=== PATIENT | female | born 1960 | race Caucasian/White ===

== ENCOUNTER → 2017-04-06 | Outpatient (CLI) | payer OTHER ==
[~2017-04-06] MED LIST: B-CO1CAP3 PO; DULO60CA44 PO; TRAM-10 PO
--- NOTE | 2017-04-06 12:22 | DIAGNOSTIC IMAGING REPORT ---
LEFT KNEE MRI Clinical history: 56-year-old female with left knee pain. TECHNIQUE: Multiplanar multisequence MRI of the left knee was performed without the use of intravenous contrast. COMPARISON: Correlation made to plain radiographs of the left knee from 11/24/2016. FINDINGS: Menisci: Slight extrusion of the body of the medial meniscus although the meniscocapsular ligaments appear intact. High intrasubstance signal within the posterior horn of the medial meniscus likely degenerative in etiology. Lateral meniscus intact. Ligaments: Anterior and posterior cruciate ligaments intact. Mildly increased signal in the tibial aspect of the medial collateral ligament may suggest mild tendinosis. Lateral collateral ligament complex including the fibular ligament, iliotibial band, and biceps femoris tendon intact. Slight high signal at the femoral condylar insertion of the popliteus tendon, which may suggest tendinosis. Extensor mechanism: Quadriceps tendon and patellar ligament intact. Articular cartilage and bone: Osteophytosis of the medial and lateral compartments. Mild thinning of the articular cartilage along the mid articular surface of the lateral femoral condyle. High-grade thinning of articular cartilage along the mid articular surface of both the medial femoral condyle and medial tibial plateau. Subchondral sclerosis in both the medial femoral condyle and medial tibial plateau with joint space narrowing. Focal chondral defect along the patella at the medial facet with minimal subchondral cystic change. Degenerative cystic change in the posterior tibia near the insertion of the posterior cruciate ligament. Joint effusion: Moderate knee joint effusion with synovitis. Prominent popliteal cyst. Soft tissues: Mild diffuse soft tissue edema surrounding the knee joint. Normal muscle bulk. No convincing evidence of intramuscular edema.. IMPRESSION: 1. Tricompartmental degenerative change most severe in the medial compartment, where there is high-grade articular cartilage thinning along the mid articular surface, subchondral sclerosis, and joint space narrowing. Focal chondral defect of the medial patellar facet. 2. Moderate joint effusion with synovitis. Electronically signed by: Hussein Bennett M.D. 04/06/2017 12:20 PM Dictated Date/Time: 04/06/2017 12:03 PM
== END | disposition home or self-care (01) ==
LOC: C.MRIBC 11:05
PROVIDERS: ATTEND Orthopaedic Surgery
DX: M25.562 Pain in left knee (principal); M25.462 Effusion, left knee; M65.9 Synovitis and tenosynovitis, unspecified

== ENCOUNTER → 2017-04-21 | Day surgery (SDC) | payer OTHER ==
[2017-04-20 14:36] VITALS: Ht 152.4 cm; Wt 63.6 kg
[~2017-04-21] VITALS: Ht 152.4 cm; Wt 63.6 kg
[~2017-04-21] MED LIST changes: +ATROPINE SULFATE 0.1 MG/ML 5ML SYR IV PRN; +CEFAZOLIN 2000 MG/60 ML D5W IV SCH; +DEXAMETHASONE SOD INJ 4 MG/ML VIAL ONE; +EpHEDrine SULFATE INJ 50 MG/ML AMP IV PRN; +EpINEphrine INJ 1MG/ML AMP 1 MG/ML AMP ONE; +FENTANYL CITRATE INJ 50 MCG/1 ML 2 ML VIAL IV PRN; +FENTANYL CITRATE INJ 50 MCG/1 ML 2 ML VIAL ONE; +HYDROmorphone INJ 1 MG/ML SYR IV PRN; +KETOROLAC TROMETHAMINE 30 MG/ML VIAL ONE; +LACTATED RINGER'S 1000ML 1,000 ML IV SCH; +LIDOCAINE HCL 2% 2 ML VIAL (20MG/ML) ONE; +MIDAZOLAM HCL 1 MG/ML 2ML VIAL ONE; +ONDANSETRON INJ 2 MG/ML 2 ML VIAL IV PRN; +ONDANSETRON INJ 2 MG/ML 2 ML VIAL ONE; +PROMETHAZINE HCL INJ 12.5 MG in SODIUM CHLORIDE 0.9% 50ML 50 ML IV PRN; +PROPOFOL IV EMULSION 10 MG/ML 20 ML VIAL IV ONE; +ROPIVACAINE 0.5% 5 MG/ML 30 ML VIAL ONE; +SODIUM CHLORIDE 0.9% 1000ML 1,000 ML IV SCH; +TRAMADOL HCL 50 MG TAB PO PRN
--- NOTE | 2017-04-21 11:40 | History & Physical Bridge - SC ---
H&P Re-Evaluation Bridge Note: I have examined the patient, reviewed the History & Physical and in the interval since the performance of the History & Physical I have noted the following changes of clinical significance: No changes noted
--- NOTE | 2017-04-21 14:19 | Discharge Instructions-SurgCtr ---
Discharge Instructions Date of Service Apr 21, 2017. Visit Reason for Visit: Left Knee Acute Medial Meniscal Tear Discharge Discharge Diagnosis / Problem: SAME ABOVE Discharge Goals Goal(s): Decrease discomfort, Improve function Medications Stopped Medications Name(s): MOTRIN STOPPED ON 04/06/17 Restart Stopped Medication(s): MAY RESTART 04/21/2017 Activity Recommendations Activity Limitations: as noted below Lifting Limitations: gradually increase as tolerated Exercise/Sports Limitations: gradually increase as tolerated Shower/Bathe: tomorrow Weightbearing Status: Left weightbearing (as tolerated) Anesthesia . Post Anesthesia Instructions: If you have had General Anesthesia or IV Sedation: * Do not drive today. * Resume driving when surgeon permits. * Do not make important decisions or sign legal documents today. * Call surgeon for: 1. Temperature elevations greater than 101 degrees F. 2. Uncontrollable pain. 3. Excessive bleeding. 4. Persistent nausea and vomiting. 5. Medication intolerance (nausea, vomiting or rash). * For nausea and vomiting use only clear liquids such as: tea, soda, bouillon until nausea subsides, then gradually increase diet as tolerated. * If you have any concerns or questions, call your surgeon's office. If physician is unavailable and it is an emergency, call 911 or go to the nearest emergency room. . Instructions / Follow-Up Instructions / Follow-Up MEDICATIONS: * Resume previous medications unless instructed otherwise by your surgeon. * Always take pain medication on a full stomach or with food to avoid upset stomach. * Do not drink alcohol or drive while taking narcotics. * Ibuprofen or Tylenol may be taken if narcotic not needed. SPECIAL CARE INSTRUCTIONS: __ None _X_ Keep extremity elevated and iced x 48 hours; apply ice 20-30 minutes 8-10 times/day. May remove at night. _X_ Crutches _X_ May discard when able __ Brace/Post-op shoe __ 24 hrs/day __ Remove at night _X_ Dressing __ Maintain until seen in office, may shower with plastic over site _X_ Remove dressings in 24-48 hours and then may shower _X_ Cover incisions with band-aids after showering __ Do not remove steri-strips Call physician if chills or temperature rises above 102 degrees or pain unrelieved by prescribed pain medications. Office [phone] Diet Recommendations Home Diet: no limitations Fluid Restriction: None Procedures Procedures Performed: Left Knee Arthroscopy, Partial Medial Meniscectomy, Chondroplasty, Aspiration of Larsen's cyst Pending Studies Studies pending at discharge: no Work Instructions Return To Work: after follow-up Medical Emergencies . Who to Call and When: Medical Emergencies: If at any time you feel your situation is an emergency, please call 911 immediately. . Non-Emergent Contact Non-Emergency issues call your: Primary Care Provider Call Non-Emergent contact if: you have a fever, temperature is above 101.5 . . "Provider Documentation" section prepared by Anatoliy Willard. .
--- NOTE | 2017-04-21 15:05 | [facility] Post Operative Brief Note ---
Immediate Operative Summary Operative Date Apr 21, 2017. Pre-Operative Diagnosis Left knee acute meniscus tear Post-Operative Diagnosis Same as pre-op Procedure(s) Performed Left Knee Arthroscopy, Partial Medial Meniscectomy, Chondroplasty, Aspiration of Larsen's cyst Surgeon Dr. Resendez Trousseau Consultant Surgeon(s) Dawson Willard PA-C Estimated Blood Loss 5ML Findings as above Specimens None Complication(s) None Disposition Recovery Room / PACU
[2017-04-21 15:15] VITALS: TEMP 36.6
[2017-04-21 15:26] VITALS: BP 130/82; PULSE 72; O2SAT 94
--- NOTE | 2017-04-21 15:30 | Anesthesia Progress Nt - [facility] ---
Anesthesia Post Op Note Date & Time Apr 21, 2017 at 15:29 Vital Signs Pain Intensity: 0 Vital Signs Past 12 Hours Date Time Temp Pulse Resp B/P (MAP) Pulse Ox O2 Delivery O2 Flow Rate FiO2 04/21/17 15:26 72 16 130/82 (98) 94 Room Air 04/21/17 15:15 36.6 69 16 142/84 (103) 94 Room Air 04/21/17 15:03 74 04/21/17 15:03 74 94 04/21/17 15:00 129/90 04/21/17 14:58 71 19 94 04/21/17 14:58 71 19 04/21/17 14:55 135/85 04/21/17 14:53 37 71 16 135/85 95 Room Air 04/21/17 14:53 76 18 100 04/21/17 14:53 76 18 04/21/17 14:50 138/95 04/21/17 14:48 69 25 100 04/21/17 14:48 70 25 04/21/17 14:45 141/89 04/21/17 14:43 73 18 04/21/17 14:43 75 18 100 04/21/17 14:40 143/98 04/21/17 14:38 70 15 100 04/21/17 14:38 70 15 04/21/17 14:36 148/91 04/21/17 14:33 69 13 04/21/17 14:33 71 13 100 04/21/17 14:30 151/90 04/21/17 14:28 66 19 100 04/21/17 14:28 68 19 04/21/17 14:25 142/77 04/21/17 14:23 76 99 04/21/17 14:23 76 04/21/17 14:20 133/89 04/21/17 14:18 36.5 60 12 128/82 97 Mask 5 04/21/17 14:18 61 04/21/17 14:18 61 128/82 97 04/21/17 12:09 36.6 78 22 120/76 (91) 98 Room Air Notes Mental Status: alert / awake / arousable, participated in evaluation Pt Amnestic to Procedure: Yes Nausea / Vomiting: adequately controlled Pain: adequately controlled Airway Patency, RR, SpO2: stable & adequate BP & HR: stable & adequate Hydration State: stable & adequate Anesthetic Complications: no major complications apparent
--- NOTE | 2017-04-25 07:44 | OPERATIVE REPORT ---
DATE OF OPERATION: 04/21/2017 PREOPERATIVE DIAGNOSIS: Medial meniscal tear of the left knee with large Larsen cyst. POSTOPERATIVE DIAGNOSIS: Same. PROCEDURE: Left knee diagnostic arthroscopy with chondroplasty, partial medial meniscectomy and aspiration of the large Larsen cyst. SURGEON: Dr. Taiwo Resendez. PUBLIC RELATIONS SENIOR ASSOCIATE: Dawson Willard PA-C, whose assistance was necessary for positioning the leg and helping with instrumentation. ANESTHESIA: General. COMPLICATIONS: None. CONDITION: Stable to PACU. INDICATIONS: Lisseth is a pleasant 56-year-old female, who presented to my office with complaints of increasing left knee pain. She has a history of 2 prior left knee arthroscopies. MRI and clinical examination were diagnostic for a medial meniscal tear and a large Larsen cyst. After failing conservative treatment, she elected to undergo arthroscopy. OPERATION AND FINDINGS: On 04/21/2017, she arrived at [facility] for the above procedure. She was seen in the preoperative holding area and the operative extremity was identified and signed. She was given a preoperative antibiotic and taken back to the operating room, laid on the table in a supine position and put under general anesthesia. The left knee was then prepped and draped in a sterile fashion. Time-out was done and the patient and operative extremity were properly identified. A scope was introduced in the medial parapatellar portal. Diagnostic arthroscopy showed no cartilage damage within the undersurface of the patella or the trochlea. There were no loose bodies in the suprapatellar pouch. The scope was brought into the medial compartment. There were grade 4 chondral changes of the distal medial femoral condyle and on the tibial plateau. There was also some tearing along the edge of the medial meniscus. A medial parapatellar portal was made under direct visualization and a shaver was used to remove the unstable portions of the meniscus. A shaver was also used to complete a chondroplasty of all the loose cartilaginous fragments. The scope was brought into the trochlea. ACL and PCL were intact. The scope was brought into the lateral compartment and there was no meniscus or cartilage damage in the lateral compartment. The scope was then placed in the medial parapatellar portal. Repeat diagnostic arthroscopy showed no additional pathology. The scope was then brought into the posterior aspect of the knee and significant time was spent trying to decompress a very large posterior Larsen cyst. Unfortunately, I was unable to decompress it arthroscopically. Arthroscopic instruments were removed from the knee and a large 18-gauge needle was used to aspirate the Larsen cyst from the posterior aspect of the knee. I was able to get out about 20 mL of synovial-appearing fluid. Portal sites were then closed with 3-0 nylon. The knee was then injected with 30 mL of ropivacaine with Toradol. She was then placed in a soft compressive dressing, extubated, transferred to a [facility] [place] and taken to the postanesthesia care unit in stable condition and she tolerated the procedure well. I attest to the content of the Intraoperative Record and any orders documented therein. Any exception s are noted below.
== END | disposition home or self-care (01) ==
LOC: X.SURG 11:48
PROVIDERS: ATTEND Orthopaedic Surgery
DX: S83.242A Other tear of medial meniscus, current injury, left knee, initial encounter (principal); M71.22 Synovial cyst of popliteal space [Baker], left knee; X58.XXXA Exposure to other specified factors, initial encounter; M79.7 Fibromyalgia; F41.9 Anxiety disorder, unspecified; F17.210 Nicotine dependence, cigarettes, uncomplicated; Z79.899 Other long term (current) drug therapy

== ENCOUNTER 2018-04-04 15:15 | Inpatient (IN) | payer OTHER ==
[2018-04-04] VITALS (7 sets, daily range): BP systolic 111–144; BP diastolic 68–92; PULSE 83–97; TEMP 36.6–36.8; O2SAT 95–98; Ht 152.4 cm; Wt 66.0 kg
[~2018-04-04] VITALS: Ht 152.4 cm; Wt 66.0 kg
[~2018-04-04 15:15] MED LIST changes: +ASPEC325 PO; -ATROPINE SULFATE 0.1 MG/ML 5ML SYR IV PRN; -B-CO1CAP3 PO; +BUSP15TA70 PO; -CEFAZOLIN 2000 MG/60 ML D5W IV SCH; -DEXAMETHASONE SOD INJ 4 MG/ML VIAL ONE; -EpHEDrine SULFATE INJ 50 MG/ML AMP IV PRN; -EpINEphrine INJ 1MG/ML AMP 1 MG/ML AMP ONE; -FENTANYL CITRATE INJ 50 MCG/1 ML 2 ML VIAL IV PRN; -FENTANYL CITRATE INJ 50 MCG/1 ML 2 ML VIAL ONE; -HYDROmorphone INJ 1 MG/ML SYR IV PRN; -KETOROLAC TROMETHAMINE 30 MG/ML VIAL ONE; -LACTATED RINGER'S 1000ML 1,000 ML IV SCH; -LIDOCAINE HCL 2% 2 ML VIAL (20MG/ML) ONE; -MIDAZOLAM HCL 1 MG/ML 2ML VIAL ONE; -ONDANSETRON INJ 2 MG/ML 2 ML VIAL IV PRN; -ONDANSETRON INJ 2 MG/ML 2 ML VIAL ONE; +OXYC-57 PO; -PROMETHAZINE HCL INJ 12.5 MG in SODIUM CHLORIDE 0.9% 50ML 50 ML IV PRN; -PROPOFOL IV EMULSION 10 MG/ML 20 ML VIAL IV ONE; -ROPIVACAINE 0.5% 5 MG/ML 30 ML VIAL ONE; -SODIUM CHLORIDE 0.9% 1000ML 1,000 ML IV SCH; -TRAM-10 PO; -TRAMADOL HCL 50 MG TAB PO PRN; +TRAZ100T29 PO; +VNTHFA/IN INH; +[UNRECOGNIZED DRUG - REMARK]
[2018-04-04] MEDS ORDERED: POVIDONE-IODINE OP SOLN 30 ML BTL ONE (17:13)
[2018-04-04] MEDS ORDERED: BACITRACIN 50000 UNIT VIAL ONE (17:14)
--- NOTE | 2018-04-04 17:26 | History and Physical ---
History & Physical Date Apr 04, 2018. Chief Complaint Superficial wound infection left knee History of Present Illness The patient is a 57 year old female with complaints of persistent drainage wound left knee Past Medical/Surgical History Medical Problems: (1) Osteoarthritis of left knee Additional History Hepatic Disease: No Endocrine Disorder: No Kidney Disease: No Hypertension: No Heart Disease: No Bleeding Tendencies: No Infectious Diseases: No Allergies Coded Allergies: Codeine (Verified Adverse Reaction, Mild, GI UPSET AND MIGRAINES, 03/17/18) Home Medications Scheduled Aspirin (Aspirin), 325 MG PO BID Buspirone Hcl (Buspar), 10 MG PO QAM Duloxetine Hcl (Cymbalta), 90 MG PO QAM Trazodone Hcl (Trazodone), 100 MG PO HS [Generic Allergy], Unknown Dose QAM Scheduled PRN Albuterol Hfa (Ventolin Hfa), 2 PUFFS INH Q4 PRN for PRN Oxycodone/Acetaminophen 5MG/325MG (Percocet 5MG/325MG), 1-2 TABLETS PO Q6 PRN for Pain Physical Examination Extremities: + pertinent finding (drainage from wound) Diagnosis Superficial infection left knee Plan of Treatment I&D left knee possible poly exchange
[2018-04-04] MEDS ORDERED: PROPOFOL IV EMULSION 10 MG/ML 20 ML VIAL ONE (17:50)
[2018-04-04] MEDS ORDERED: LIDOCAINE HCL 2% 2 ML VIAL (20MG/ML) ONE (17:50)
[2018-04-04] MEDS ORDERED: ONDANSETRON INJ 2 MG/ML 2 ML VIAL ONE (17:50)
[2018-04-04] MEDS ORDERED: MIDAZOLAM HCL 1 MG/ML 2ML VIAL ONE (17:51)
[2018-04-04] MEDS ORDERED: FENTANYL CITRATE INJ 50 MCG/1 ML 2 ML VIAL ONE ×3 (17:51→20:00)
[2018-04-04] MEDS ORDERED: DAKIN'S SOLN 0.25% HALF STRENGTH 473ML BTL EXT ONE (18:00)
[2018-04-04] MEDS ORDERED: VANCOMYCIN HCL 1000MG/20ML VIAL ONE ×2 (18:02→18:18)
--- NOTE | 2018-04-04 18:10 | HISTORY & PHYSICAL EXAMINATION ---
DATE OF ADMISSION: 04/04/2018 [facility] COMPLAINT: Superficial infection of the left knee. HISTORY OF PRESENT ILLNESS: Lisseth is a pleasant 57-year-old female who underwent a left total knee arthroplasty 2-1/2 weeks ago. She had a little bit of a hematoma beneath the skin, but there was no drainage at that time and she did not want to aspirate it. Unfortunately, over the past week, she has been having some drainage coming from the wound. I had her come to my office immediately. I did aspirate the fluctuant area today in the office and there was some purulence in the aspiration. I was concerned that there might be a superficial infection, so I decided to send her over to the hospital as a direct admit and to take her immediately for an I and D. PAST MEDICAL HISTORY: Significant for depression and fibromyalgia. PAST SURGICAL HISTORY: Significant for partial hysterectomy 20 years ago and a left total knee arthroplasty 2-1/2 weeks ago. ALLERGIES: CODEINE, WHICH CAUSED HER TO HAVE HEADACHES AND TO BE NAUSEOUS. MEDICATIONS: Include duloxetine, trazodone, and Wellbutrin. FAMILY HISTORY: Significant for heart disease. SOCIAL HISTORY: She is single, lives in an apartment by herself. She does have a friend who helps take care of her. She smokes half-a-pack a day. REVIEW OF SYSTEMS: She complains of left knee pain and drainage, all other pertinent review of systems are negative. PHYSICAL EXAMINATION: GENERAL: She is awake, alert, and oriented x3. She is very anxious. HEENT: Pupils equal, round, reactive to light. Extraocular movements intact. Oral mucosa is pink and moist. HEART: Regular rate per radial pulse. LUNGS: [place] symmetrically bilaterally with no audible breath sounds. ABDOMEN: Soft, nontender, nondistended. MUSCULOSKELETAL: On physical examination of the left knee, the incision is mostly healed. There is a small area of drainage. It looks like mostly serous drainage with little bit of purulent discharge. There is some redness around the incision site. There is no pain or redness around the retinaculum of the knee. Her range of motion of her knee seems to be limited, but mostly because of the superficial wound infection. IMPRESSION: Superficial wound infection of the left knee. PLAN: I think this infection is mostly superficial. It seems to be between the extensor mechanism and the skin. We will take her to the operating room and do an open I and D. I will look closely. If there appears to be any communication through the extensor tendon or any chance that it could be going deep within the knee joint, I will open up the extensor mechanism and do a poly exchange and a full washout of the knee. Postoperatively, we will at least keep her overnight for IV antibiotics.
[2018-04-04] MEDS ORDERED: HYDROmorphone INJ 2 MG/ML SYR/VIAL ONE (19:25)
[2018-04-04] MEDS: SODIUM CHLORIDE 0.9% 1000ML 1,000 ML IV SCH (19:40)
--- NOTE | 2018-04-04 19:40 | [facility] Post Operative Brief Note ---
Immediate Operative Summary Operative Date Apr 04, 2018. Pre-Operative Diagnosis Superficial infection left knee Post-Operative Diagnosis Deep infection of left knee Procedure(s) Performed Incision and Drainage, poly exchange Left Knee, application of stimulan beads Surgeon Dr Resendez Restaurant Server Surgeon(s) none Estimated Blood Loss 5cc Findings Consistent with Post-Op Diagnosis Specimens 1. Routine and anaerobic culture left knee A. Explanted poly left knee Anesthesia Type General
[2018-04-04] MEDS ORDERED: VANCOMYCIN CONSULT ACTIVE PRN (19:45)
[2018-04-04] MEDS ORDERED: ONDANSETRON INJ 2 MG/ML 2 ML VIAL IV PRN ×2 (19:45→20:00)
[2018-04-04] MEDS ORDERED: BISACODYL 10 MG SUPP PR PRN (19:45)
[2018-04-04] MEDS ORDERED: SOD PHOSPHATE/SOD BIPHOSPHATE ENEMA 132 ML BTL PR PRN (19:45)
[2018-04-04] MEDS ORDERED: ALBUTEROL HFA 8 GM INHALER INH PRN (19:45)
[2018-04-04] MEDS ORDERED: METOCLOPRAMIDE HCL INJ 5 MG/ML 2 ML VIAL IV PRN (19:45)
[2018-04-04] MEDS ORDERED: MAGNESIUM HYDROXIDE SUSP 30 ML UDC PO PRN (19:45)
[2018-04-04] MEDS ORDERED: LORAZEPAM 1 MG TAB PO PRN (19:45)
[2018-04-04] MEDS ORDERED: FENTANYL CITRATE INJ 50 MCG/1 ML 2 ML VIAL IV PRN (20:00)
[2018-04-04] MEDS ORDERED: EpHEDrine SULFATE INJ 50 MG/ML AMP IV PRN (20:00)
[2018-04-04] MEDS ORDERED: KETOROLAC TROMETHAMINE 30 MG/ML VIAL IV. PRN (20:00)
[2018-04-04] MEDS ORDERED: MEPERIDINE HCL 25 MG/ML CARP IV PRN (20:00)
[2018-04-04] MEDS ORDERED: HYDROmorphone INJ 0.5 MG/0.5 ML SYR IV PRN (20:00)
[2018-04-04] MEDS ORDERED: LABETALOL HCL IV 5 MG/ML 20ML IV PRN (20:00)
[2018-04-04] MEDS ORDERED: ATROPINE SULFATE 0.1 MG/ML 5ML SYR IV PRN (20:00)
--- NOTE | 2018-04-04 20:21 | Anesthesiology Progress Note ---
Anesthesia Post Op Note Date & Time Apr 04, 2018 at 20:20 Vital Signs Pain Intensity: 4 Vital Signs Past 12 Hours Date Time Temp Pulse Resp B/P (MAP) Pulse Ox O2 Delivery O2 Flow Rate FiO2 04/04/18 20:15 92 16 140/91 100 Nasal Cannula 4 04/04/18 20:05 93 21 160/93 100 Nasal Cannula 4 04/04/18 19:55 90 15 149/105 100 Nasal Cannula 4 04/04/18 19:47 36.3 100 12 148/97 90 Room Air 04/04/18 17:46 37.1 82 20 119/63 (81) 93 Room Air 04/04/18 16:25 Room Air 04/04/18 15:57 36.8 88 19 123/79 98 Room Air Notes Mental Status: alert / awake / arousable, participated in evaluation Pt Amnestic to Procedure: Yes Nausea / Vomiting: adequately controlled Pain: adequately controlled Airway Patency, RR, SpO2: stable & adequate BP & HR: stable & adequate Hydration State: stable & adequate Anesthetic Complications: no major complications apparent
[2018-04-04] MEDS ORDERED: VANCOMYCIN IV 750 MG in SODIUM CHLORIDE 0.9% 250ML 250 ML IV ONE (20:30)
--- NOTE | 2018-04-04 21:00 | OPERATIVE REPORT ---
DATE OF OPERATION: 04/04/2018 PREOPERATIVE DIAGNOSIS: Superficial infection of the left knee. POSTOPERATIVE DIAGNOSIS: Deep periprosthetic left knee infection. PROCEDURE: Irrigation and debridement of the left knee with poly exchange and application of Stimulan beads. SURGEON: Taiwo Resendez DO ASSISTANTS: None. ANESTHESIA: General. COMPLICATIONS: None. CONDITION: Stable to PACU. INDICATIONS: Lisseth is a 57-year-old female who underwent a left total knee arthroplasty 2-1/2 weeks ago. She initially did very well postoperatively. When she came in for her 2-week followup, there was a little bit of fluctuance directly under the incision site. There was no drainage, mani removed, and the incision looked good. I thought there was a little bit of a hematoma or seroma. I offered to drain it, but she did not want a needle around the area. I thought that was reasonable. I thought it would absorb on its own. She then returned to the office less than a week later with some drainage from the incision site. I did aspirate the superficial fluctuant area behind the incision in the office. Unfortunately, I got purulent aspiration. I elected to send her directly over to the hospital for an urgent irrigation and debridement with possible poly exchange. OPERATION AND FINDINGS: On 04/04/2018, she was brought down from the hospital room directly to the preoperative holding area, the operative extremity was identified and signed. She was not given any antibiotic. She was then taken back to the operating room, laid on table in supine position and put under general anesthesia. The left knee was then prepped and draped in sterile fashion. Timeout was done and the patient operative extremity was properly identified. The old incision was then opened up. There was a lot of purulent discharge immediately. A culture swab was taken. As soon as the culture was taken, IV vancomycin was started. The superficial wound was irrigated. There was an area in the superior medial aspect of the medial parapatellar approach that communicated with the joint. By definition, the deep joint was infected. However, the majority of the abscess appeared to be superficial. The quad tendon was then opened back up. The knee was then irrigated and the polyethylene insert was removed. The surrounding soft tissues were then debrided with a sharp knife and a rongeur. Time was spent ensuring complete debridement of the surrounding soft tissues. The knee was then soaked in 0.5% Dakin solution. This sat for 3 minutes. The knee was then irrigated with 3 liters normal saline solution with pulse lavage. The knee was then soaked with Betadine solution. It was let to stand for 3 minutes. It was then irrigated with 3 liters normal saline solution. The knee was then irrigated with an additional 3 liters normal saline solution with bacitracin. After all the irrigation was done, gloves were changed, suction tips were changed and new drapes were applied. A clean table was placed for cleaned instruments. A new size-12 polyethylene insert was then snapped into place. The anterior bar was locked. The knee was brought through a full range of motion and felt to be stable. 10 mL of Stimulan beads were then mixed up on the back table with 1 g of vancomycin. Once hardened, they were then placed in the medial and lateral gutters and in the suprapatellar region. The extensor mechanism was then closed with #1 PDS suture. A few Stimulan beads were then placed on top of the extensor mechanism. Skin was closed with 2-0 Vicryl and mani. She was then placed in a soft compressive dressing, extubated, [facility], and taken to the postanesthesia care unit in stable condition. She tolerated the procedure well. I attest to the content of the Intraoperative Record and any orders documented therein. Any exception s are noted below.
[2018-04-04] MEDS: DOCUSATE SODIUM 100 MG CAP PO SCH (21:47)
[2018-04-04] MEDS: SENNA 8.6 MG TAB PO SCH (21:47)
[2018-04-04] MEDS: TRAZODONE HCL 100 MG TAB PO SCH (21:48)
[2018-04-04] MEDS: KETOROLAC TROMETHAMINE 30 MG/ML VIAL IV. SCH (21:48)
[2018-04-04] MEDS: ASPIRIN 325 MG ECTAB PO SCH (21:50)
[2018-04-04] MEDS: OXYCODONE HCL IR 5 MG TAB (IMMEDIATE RELEASE) PO PRN (23:31)
[2018-04-05] VITALS (9 sets, daily range): BP systolic 99–125; BP diastolic 60–74; PULSE 88–100; TEMP 36.5–37.9; O2SAT 91–94
[2018-04-05] MEDS: KETOROLAC TROMETHAMINE 30 MG/ML VIAL IV. SCH ×4 (01:59→20:30)
[2018-04-05] MEDS: SODIUM CHLORIDE 0.9% 1000ML 1,000 ML IV SCH ×2 (05:38→17:08)
[2018-04-05] MEDS: OXYCODONE HCL IR 5 MG TAB (IMMEDIATE RELEASE) PO PRN ×3 (05:42→18:06)
[2018-04-05 06:35] LABS: HEMATOCRIT 37.3 % (37-47); HEMOGLOBIN 12.5 g/dL (12.0-16.0); MEAN CELL VOLUME 91.4 fL (80-100); MEAN CORPUSCULAR HEMOGLOBIN 30.6 pg (25-34); MEAN CORPUSCULAR HGB CONC 33.5 g/dl (32-36); MEAN PLATELET VOLUME 9.2 fL (7.4-10.4); PLATELET COUNT 342 K/uL (130-400); RED CELL DISTRIBUTION WIDTH CV 15.5 % (11.5-14.5); RED CELL DISTRIBUTION WIDTH SD 51.5 fL (36.4-46.3); WHITE BLOOD COUNT 18.72 K/uL (4.8-10.8)
[2018-04-05 06:52] LABS: CREATININE 0.73 mg/dl (0.60-1.20)
--- NOTE | 2018-04-05 07:59 | PROGRESS NOTE ---
DATE: 04/05/2018 CHIEF COMPLAINT: Status post incision and drainage poly exchange of the left knee, postop day #1. PROGRESS: Overall, Lisseth is doing fairly well. She still has some soreness in her knee, but it is better than it was before the surgery. She was sleeping when I entered the room. She has no new complaints. She has been up and ambulating to the bathroom. PHYSICAL EXAMINATION: LEFT KNEE: Her leg is out in full extension. The dressing is clean and dry. She has active dorsiflexion and plantarflexion of her left ankle. Sensation is intact throughout. LABORATORY DATA: She has an H and H today of 12.5 and 37.3. Her white count is 18.72. Her creatinine is 0.73 and her glucose is 96. Her vital signs are all stable on room air. She is voiding on her own. IMPRESSION: Status post incision and drainage poly exchange of the left knee, postop day #1. PLAN: She did have a deep infection within the knee. Everything was washed out accordingly in the operating room. Antibiotic beads were placed. She is currently on vancomycin 1 gram every 12 hours while waiting for cultures to come back. Infectious disease has been consulted. I told her she will likely be in the hospital for several days, receiving IV antibiotics and then will possibly send her home with a PICC line, but we are waiting for recommendations from infectious disease. She can be up and weightbearing as tolerated with physical therapy. We will continue the aspirin 325 twice a day for DVT prophylaxis.
[2018-04-05] MEDS: DOCUSATE SODIUM 100 MG CAP PO SCH ×2 (08:38→20:31)
[2018-04-05] MEDS: ASPIRIN 325 MG ECTAB PO SCH ×2 (08:38→20:30)
[2018-04-05] MEDS: VANCOMYCIN IV 1,000 MG in SODIUM CHLORIDE 0.9% 250ML 250 ML IV SCH ×2 (08:38→20:30)
[2018-04-05] MEDS: BusPIRone 15 MG TAB PO SCH (08:39)
[2018-04-05] MEDS: MULTIVITAMIN TAB PO SCH (08:39)
[2018-04-05] MEDS: DULOXETINE (CYMBALTA) 30 MG CAP PO SCH (08:39)
--- NOTE | 2018-04-05 10:54 | Medical Consult ---
Consultation Date of Consultation: Apr 05, 2018. Attending Physician: Taiwo Resendez DO Reason for Consultation: Infected left total knee History of Present Illness 57-year-old female status post left knee arthroplasty approximately 2 weeks ago , initially did well, but developed some non purulent drainage from the wound. This worsened and patient subsequently developed purulent drainage and was found to have evidence deeper infection. She has now undergone surgical debridement with poly exchange and placement of antibiotic beads. Her pain is much improved this morning, currently 2/10 in intensity left knee. She has been afebrile. Cultures are pending, Gram stain shows gram-positive cocci. Patient currently on vancomycin. Past Medical/Surgical History Medical Problems: (1) Osteoarthritis of left knee PAST MEDICAL HISTORY: Significant for depression, fibromyalgia. PAST SURGICAL HISTORY: Significant for a partial hysterectomy 20 years ago. Family History Noncontributory Social History Smoking Status: Current Every Day Smoker Allergies Coded Allergies: Codeine (Verified Adverse Reaction, Mild, GI UPSET AND MIGRAINES, 03/17/18) Current Inpatient Medications Current Inpatient Medications Medications (Trade) Dose Ordered Sig/Ana Route Start Time Stop Time Status Last Admin Dose Admin Albuterol (Ventolin Hfa Inhaler) 2 puffs Q4 PRN INH 04/04/18 19:45 05/04/18 19:44 Aspirin (Ecotrin Tab) 325 mg BID PO 04/04/18 21:00 05/04/18 20:59 04/05/18 08:38 325 MG Buspirone HCl (BusPAR TAB) 10 mg QAM PO 04/05/18 09:00 05/05/18 08:59 04/05/18 08:39 10 MG Duloxetine HCl (Cymbalta Cap) 90 mg QAM PO 04/05/18 09:00 05/05/18 08:59 04/05/18 08:39 90 MG Trazodone HCl (Desyrel Tab) 100 mg HS PO 04/04/18 21:00 05/04/18 20:59 04/04/18 21:48 100 MG Sodium Chloride 1,000 ml @ 100 mls/hr Q10H IV 04/04/18 19:40 04/05/18 19:39 04/05/18 05:38 100 MLS/HR Vancomycin HCl 1000 mg/Sodium Chloride 270 ml @ 125 mls/hr Q12H IV 04/05/18 08:00 04/06/18 07:59 04/05/18 08:38 125 MLS/HR Oxycodone HCl (Roxicodone Immediate Rel Tab) 1 TABLET FOR PAIN RATING... Q4H PRN PO 04/04/18 19:45 04/18/18 19:44 04/05/18 10:30 10 MG Morphine Sulfate (MoRPHine SULFATE INJ) 2 mg Q2HWA PRN IV 04/04/18 19:45 04/18/18 19:44 Magnesium Hydroxide (Milk Of Magnesia Susp) 30 ml Q6H PRN PO 04/04/18 19:45 05/04/18 19:44 Bisacodyl (Dulcolax Supp) 10 mg DAILY PRN [place] 04/04/18 19:45 05/04/18 19:44 Sodium Biphosphate/ Sodium Phosphate (Fleet Enema) 132 ml DAILY PRN [place] 04/04/18 19:45 05/04/18 19:44 Senna (Senokot Tab) 17.2 mg HS PO 04/04/18 21:00 05/04/18 20:59 04/04/18 21:47 17.2 MG Docusate Sodium (coLACE CAP) 100 mg BID PO 04/04/18 21:00 05/04/18 20:59 04/05/18 08:38 100 MG Multivitamins (Multivitamin Tab) 1 tab QAM PO 04/05/18 09:00 05/05/18 08:59 04/05/18 08:39 1 TAB Ondansetron HCl (Zofran Inj) 4 mg Q6H PRN IV 04/04/18 19:45 05/04/18 19:44 Metoclopramide HCl (Reglan Inj) 10 mg Q6H PRN IV 04/04/18 19:45 05/04/18 19:44 Ketorolac Tromethamine (Toradol Inj) 30 mg Q6H IV. 04/04/18 20:00 04/06/18 19:59 04/05/18 08:38 30 MG Vancomycin HCl (Consult) 1 ea UD PRN N/A 04/04/18 19:45 05/04/18 19:44 Lorazepam (Ativan Tab) 1 mg Q6HWA PRN PO 04/04/18 19:45 05/04/18 19:44 Review of Systems All systems were reviewed and are negative except as per HPI Physical Exam Date Time Temp Pulse Resp B/P (MAP) Pulse Ox O2 Delivery O2 Flow Rate FiO2 04/05/18 10:06 92 Room Air 04/05/18 07:59 37.9 94 16 125/74 (91) 92 Room Air 04/05/18 07:13 36.5 88 18 101/65 (77) 93 Room Air 04/05/18 03:19 37.1 91 15 100/63 (75) 92 Room Air 04/04/18 23:48 96 Room Air 04/04/18 23:27 Room Air 04/04/18 23:17 36.8 83 16 113/72 (86) 96 Nasal Cannula 2.0 04/04/18 22:11 36.7 88 16 111/68 (82) 95 04/04/18 21:38 36.7 96 16 122/68 (86) 97 04/04/18 21:10 36.6 97 16 127/73 (91) 96 04/04/18 20:45 Nasal Cannula 04/04/18 20:35 36.6 90 16 144/92 (109) 96 Nasal Cannula 2.0 04/04/18 20:35 Nasal Cannula 2.0 04/04/18 20:25 36.4 94 17 139/89 100 Nasal Cannula 4 04/04/18 20:15 92 16 140/91 100 Nasal Cannula 4 04/04/18 20:05 93 21 160/93 100 Nasal Cannula 4 04/04/18 19:55 90 15 149/105 100 Nasal Cannula 4 04/04/18 19:47 36.3 100 12 148/97 90 Room Air 04/04/18 17:46 37.1 82 20 119/63 (81) 93 Room Air 04/04/18 16:25 Room Air 04/04/18 15:57 36.8 88 19 123/79 98 Room Air General Appearance: WD/WN, no apparent distress Head: normocephalic, atraumatic Eyes: normal inspection, EOMI, sclerae normal ENT: normal ENT inspection, hearing grossly normal, pharynx normal Neck: supple, no adenopathy, thyroid normal, trachea midline Respiratory/Chest: chest non-tender, lungs clear, normal breath sounds, no respiratory distress Cardiovascular: regular rate, rhythm, no gallop, no murmur Abdomen/GI: normal bowel sounds, non tender, soft, no organomegaly Back: normal inspection, no CVA tenderness Extremities/Musculoskelatal: no calf tenderness, normal capillary refill, no pedal edema Neurologic/Psych: alert, normal mood/affect, oriented x 3 Skin: normal color, warm/dry, no rash, + pertinent finding (Surgical dressing in place left knee) Lymphatic: no adenopathy Laboratory Results RUN DATE: 04/05/18 [facility] LAB PAGE 1 RUN TIME: 701 Specimen Inquiry PATIENT: YANDEL GOODE LOC: [facility] U # : [id number] AGE/SX: 57/F ROOM: [facility] REG : 04/04/[address]: Taiwo Resendez, : 1960 BED: 2 DIS : STATUS: ADM IN TLOC: SPEC #: [id number] VANITA: 04/04/18-UNK STATUS: RES REQ #: [id number] RECD: 04/04/[address]: Taiwo Resendez DO SOURCE: ABSCESS ENTR: 04/04/[address]: Marlo Benavidez MD [facility]: KNEE LEFT MarleniZuleika D.OKimberley ORDERED: AER/JUMA CULTSMR COMMENTS: INFECTED LEFT KNEE FLUID Procedure Result Verified Site GRAM STAIN Final 04/05/18-700 RESULT MANY POLYS MODERATE GRAM POSITIVE COCCI OR AER/JUMA CULT Results Pending Last 24 Hours Test 04/05/18 06:15 White Blood Count 18.72 K/uL Red Blood Count 4.08 M/uL Hemoglobin 12.5 g/dL Hematocrit 37.3 % Mean Corpuscular Volume 91.4 fL Mean Corpuscular Hemoglobin 30.6 pg Mean Corpuscular Hemoglobin Concent 33.5 g/dl RDW Standard Deviation 51.5 fL RDW Coefficient of Variation 15.5 % Platelet Count 342 K/uL Mean Platelet Volume 9.2 fL Sodium Level 136 mmol/L Potassium Level 4.0 mmol/L Chloride Level 102 mmol/L Carbon Dioxide Level 28 mmol/L Anion Gap 6.0 mmol/L Blood Urea Nitrogen 16 mg/dl Creatinine 0.73 mg/dl Est Creatinine Clear Calc Drug Dose 72.1 ml/min Estimated GFR () 106.0 Estimated GFR (Non- 91.4 BUN/Creatinine Ratio 21.3 Random Glucose 96 mg/dl Calcium Level 9.0 mg/dl Assessment & Plan Infected left TKA, suspect will be staphylococcal. Patient will be continued on vancomycin pending final culture results. Will require prolonged IV antibiotics and would place PICC line to allow for outpatient therapy. Will follow.
--- NOTE | 2018-04-05 15:06 | Pharmacy Progress Note ---
Pharmacy Abx Initial Consult Date of Service Apr 05, 2018. Pharmacy Dosing Scope Date of Consult: 04/04/18 Consultation requested by: Dr. Resendez Pharmacy is consulted to initiate Vancomycin IV dosing therapy, order appropriate labs and adjust drug dose/frequency. Subjective The patient is a 57 year old female admitted on Apr 04, 2018 at 15:43. Objective Height (Feet): 5 Height (Inches): 0.00 Weight (Kilograms): 66.000 Vital Signs (Past 12Hrs) Vital Signs Past 12 Hours Date Time Temp Pulse Resp B/P (MAP) Pulse Ox O2 Delivery O2 Flow Rate FiO2 04/05/18 12:11 37.1 04/05/18 11:17 37.5 94 18 103/69 (80) 91 Room Air 04/05/18 10:06 92 Room Air 04/05/18 09:50 94 91 04/05/18 07:59 37.9 94 16 125/74 (91) 92 Room Air 04/05/18 07:45 Room Air 04/05/18 07:13 36.5 88 18 101/65 (77) 93 Room Air 04/05/18 03:19 37.1 91 15 100/63 (75) 92 Room Air Lab Results (24Hrs) Laboratory Tests (24 Hours) Test 04/05/18 06:15 White Blood Count 18.72 K/uL (4.8-10.8) H Micro Results Date/Time Source Procedure Growth Status 04/04/18 00:00 Abscess Knee Left Gram Stain - Final Resulted 04/04/18 00:00 Bacterial Culture - Preliminary Staphylococcus Aureus Resulted Assessment & Plan Assessment 57 year old female admitted on 04/04/18 for infected TKA. Patient given 1750mg ( 26.5mg/kg) loading dose. Clinical indication for vancomycin changed from post- op to bone and joint as patient is to receive IV abx therapy for 6 weeks. ID is consulted. Plan Vancomycin IV * Vd 0.7 L/kg, Ke ~0.065 hr-1, t1/2 ~10.66hr * Maintenance dose: 1000 mg IV (15.15 mg/kg) every 12 hours (0800, 2000) * Goal trough level: 15-20 mcg/mL * Trough level ordered for 04/06/18 at 0730 Pharmacy will continue to follow and will adjust dose/frequency as necessary. Thank you.
[2018-04-05] MEDS: SENNA 8.6 MG TAB PO SCH (20:31)
[2018-04-05] MEDS: TRAZODONE HCL 100 MG TAB PO SCH (20:31)
[2018-04-06] MEDS: KETOROLAC TROMETHAMINE 30 MG/ML VIAL IV. SCH ×3 (01:45→14:39)
[2018-04-06] MEDS: OXYCODONE HCL IR 5 MG TAB (IMMEDIATE RELEASE) PO PRN ×4 (04:39→20:43)
[2018-04-06 07:24] VITALS: O2SAT 93
[2018-04-06] MEDS ORDERED: VANCOMYCIN TROUGH ONE (07:30)
[2018-04-06 07:45] VITALS: BP 103/70; PULSE 95; TEMP 36.8; O2SAT 93
[2018-04-06] MEDS: VANCOMYCIN IV 1,000 MG in SODIUM CHLORIDE 0.9% 250ML 250 ML IV SCH (08:37)
[2018-04-06] MEDS: BusPIRone 15 MG TAB PO SCH (08:38)
[2018-04-06] MEDS: DULOXETINE (CYMBALTA) 30 MG CAP PO SCH (08:38)
[2018-04-06] MEDS: ASPIRIN 325 MG ECTAB PO SCH ×2 (08:38→20:39)
[2018-04-06] MEDS: DOCUSATE SODIUM 100 MG CAP PO SCH ×2 (08:38→20:39)
[2018-04-06] MEDS: MULTIVITAMIN TAB PO SCH (08:39)
--- NOTE | 2018-04-06 10:42 | Pharmacy Progress Note ---
Pharmacy Abx Dose Progress Nt Date of Service Apr 06, 2018. Pharmacy Dosing Scope The patient is currently receiving the following antimicrobial agents per Pharmacy consult: Vancomycin 1000 mg IV/PO every 12 hours Objective Height (Feet): 5 Height (Inches): 0.00 Weight (Kilograms): 66.000 Vital Signs (Past 12Hrs) Vital Signs Past 12 Hours Date Time Temp Pulse Resp B/P (MAP) Pulse Ox O2 Delivery O2 Flow Rate FiO2 04/06/18 07:45 36.8 95 16 103/70 (81) 93 Room Air 04/06/18 07:24 93 Room Air 04/05/18 23:20 37.0 98 15 101/67 (78) 91 Room Air Micro Results Date/Time Source Procedure Growth Status 04/04/18 00:00 Abscess Knee Left Gram Stain - Final Resulted 04/04/18 00:00 Bacterial Culture - Preliminary Staphylococcus Aureus Resulted Assessment & Plan Assessment * 57 year old female receiving vancomycin for treatment of infected TKA * Day # of antimicrobial therapy * Trough 9 mcg/mL, drawn appropriately this morning at 0730 * Currently ordered vancomycin 1000mg Q12H, confirmed that pt received vancomycin 1000mg at 0800 Plan Vancomycin IV * Vd ~0.7 L/kg, ke ~0.065 hr-1, t1/2 ~10.66 hr * Trough level of 9 mcg/mL is subtherapeutic * Change to 1000 mg IV every 8 hours, first dose to be hung today at 1600 * Goal trough level for 15-20 mcg/mL * Trough ordered for: 04/07/18 at 1530 * SCr ordered for tomorrow with AM labs Pharmacy will continue to follow and will adjust dose/frequency as necessary. Thank you.
[2018-04-06 11:31] VITALS: BP 122/72; PULSE 82; TEMP 36.6; O2SAT 95
[2018-04-06] MEDS: CEFTRIAXONE SOD INJ 2,000 MG in DEXTROSE 5% 50ML 50 ML IV SCH (15:18)
[2018-04-06 15:35] VITALS: BP 102/65; PULSE 93; TEMP 37; O2SAT 94
[2018-04-06] MEDS ORDERED: VANCOMYCIN IV 1,000 MG in SODIUM CHLORIDE 0.9% 250ML 250 ML IV SCH (16:00)
--- NOTE | 2018-04-06 16:09 | PROGRESS NOTE ---
DATE: 04/06/2018 CHIEF COMPLAINT: Status post I and D of the left knee, postop day #2. SUBJECTIVE: Lisseth was seen and examined at bedside today. Overall, she says she is feeling better. She is not having much pain. Unfortunately, she is having a lot of drainage from the wound. She has had multiple dressing changes. There was one small area of the wound that is opening up a little bit. She is otherwise doing well. There are no other complaints. OBJECTIVE: The dressing was taken down. There was a small area, about a third [address] way up the incision that seems to be opening up some. I am able to get some drainage out of it. It is a whitish drainage, but she also had the vancomycin beads placed in there. I do not get any foul smell with it. MICROBIOLOGY: It has grown back Staphylococcus aureus and it seems to be sensitive to all antibiotics. IMPRESSION: Status post incision and drainage of the left knee postop day #2. PLAN: At this point, she is doing about as well as expected. I am a little concerned about the drainage from the wound. I am going to go ahead and place an incisional VAC on her to try to get this to dry up. If infectious disease gives a final antibiotic prescription, we may discharge her to home as soon as tomorrow with a PICC line placed.
--- NOTE | 2018-04-06 16:45 | Infectious Disease Progress Nt ---
Progress Note Date of Service Apr 06, 2018. Subjective Pt evaluation today including: conversation w/ patient, physical exam, chart review, lab review, review of studies, conversation w/ inside solar sales consultant, review of inpatient medication list Still with significant drainage from her left knee. Remains afebrile. Cultures growing methicillin sensitive Staph aureus All Other Systems: Reviewed and Negative Medications Current Inpatient Medications Medications (Trade) Dose Ordered Sig/Ana Route Start Time Stop Time Status Last Admin Dose Admin Albuterol (Ventolin Hfa Inhaler) 2 puffs Q4 PRN INH 04/04/18 19:45 05/04/18 19:44 Aspirin (Ecotrin Tab) 325 mg BID PO 04/04/18 21:00 05/04/18 20:59 04/06/18 08:38 325 MG Buspirone HCl (BusPAR TAB) 10 mg QAM PO 04/05/18 09:00 05/05/18 08:59 04/06/18 08:38 10 MG Duloxetine HCl (Cymbalta Cap) 90 mg QAM PO 04/05/18 09:00 05/05/18 08:59 04/06/18 08:38 90 MG Trazodone HCl (Desyrel Tab) 100 mg HS PO 04/04/18 21:00 05/04/18 20:59 04/05/18 20:31 100 MG Oxycodone HCl (Roxicodone Immediate Rel Tab) 1 TABLET FOR PAIN RATING... Q4H PRN PO 04/04/18 19:45 04/18/18 19:44 04/06/18 16:24 10 MG Morphine Sulfate (MoRPHine SULFATE INJ) 2 mg Q2HWA PRN IV 04/04/18 19:45 04/18/18 19:44 Magnesium Hydroxide (Milk Of Magnesia Susp) 30 ml Q6H PRN PO 04/04/18 19:45 05/04/18 19:44 Bisacodyl (Dulcolax Supp) 10 mg DAILY PRN [place] 04/04/18 19:45 05/04/18 19:44 Sodium Biphosphate/ Sodium Phosphate (Fleet Enema) 132 ml DAILY PRN [place] 04/04/18 19:45 05/04/18 19:44 Senna (Senokot Tab) 17.2 mg HS PO 04/04/18 21:00 05/04/18 20:59 04/05/18 20:31 17.2 MG Docusate Sodium (coLACE CAP) 100 mg BID PO 04/04/18 21:00 05/04/18 20:59 04/06/18 08:38 100 MG Multivitamins (Multivitamin Tab) 1 tab QAM PO 04/05/18 09:00 05/05/18 08:59 04/06/18 08:39 1 TAB Ondansetron HCl (Zofran Inj) 4 mg Q6H PRN IV 04/04/18 19:45 05/04/18 19:44 Metoclopramide HCl (Reglan Inj) 10 mg Q6H PRN IV 04/04/18 19:45 05/04/18 19:44 Ketorolac Tromethamine (Toradol Inj) 30 mg Q6H IV. 04/04/18 20:00 04/06/18 19:59 04/06/18 14:39 30 MG Lorazepam (Ativan Tab) 1 mg Q6HWA PRN PO 04/04/18 19:45 05/04/18 19:44 Ceftriaxone Sodium 2000 mg/ Dextrose 70 ml @ 100 mls/hr Q24H IV 04/06/18 15:00 05/18/18 14:59 04/06/18 15:18 100 MLS/HR Objective Vital Signs Date Time Temp Pulse Resp B/P (MAP) Pulse Ox O2 Delivery O2 Flow Rate FiO2 04/06/18 15:35 37.0 93 16 102/65 (77) 94 Room Air 04/06/18 11:31 36.6 82 16 122/72 (89) 95 Room Air 04/06/18 07:45 36.8 95 16 103/70 (81) 93 Room Air 04/06/18 07:40 Room Air 04/06/18 07:24 93 Room Air 04/05/18 23:20 37.0 98 15 101/67 (78) 91 Room Air 04/05/18 20:00 Room Air Physical Exam General Appearance: WD/WN, no apparent distress Eyes: normal inspection, EOMI, sclerae normal ENT: normal ENT inspection, hearing grossly normal, pharynx normal Neck: supple, no adenopathy, thyroid normal, trachea midline Respiratory/Chest: chest non-tender, lungs clear, normal breath sounds, no respiratory distress Cardiovascular: regular rate, rhythm, no gallop, no murmur Abdomen: normal bowel sounds, non tender, soft, no organomegaly Extremities: non-tender, no calf tenderness, normal capillary refill Neurologic/Psychiatric: alert, normal mood/affect, oriented x 3 Skin: normal color, no rash, + pertinent finding (Dressing in place left knee) Laboratory Results RUN DATE: 04/06/18 [facility] LAB PAGE 1 RUN TIME: 1001 Specimen Inquiry PATIENT: YANDEL GOODE LOC: [facility] U # : [id number] AGE/SX: 57/F ROOM: [facility] REG : 04/04/[address]: Taiwo Resendez, : 1960 BED: 2 DIS : STATUS: ADM IN TLOC: SPEC #: [id number] VANITA: 04/04/18-K STATUS: RES REQ #: [id number] RECD: 04/04/18-[address] [place] [address] DR: Taiwo Resendez DO SOURCE: ABSCESS ENTR: 04/04/18-[address]: Marlo Benavidez MD [facility]: KNEE LEFT YepezZuleika D.O. ORDERED: AER/JUMA CULTSMR COMMENTS: INFECTED LEFT KNEE FLUID Procedure Result Verified Site GRAM STAIN Final 04/05/18 RESULT MANY POLYS MODERATE GRAM POSITIVE COCCI OR AER/JUMA CULT Preliminary 04/06/18-100 Organism 1 STAPHYLOCOCCUS AUREUS QUANITY MODERATE SENS SENSITIVITY TO FOLLOW 1. STAPHYLOCOCCUS AUREUS Target Route Dose RX AB Cost M.I.C. IQ ------ ----- ------ -- ------ -------- - ------ TRIMET/SULFA S <=0.5/ 9.5 * OXACILLIN S 0.5 VANCOMYCIN S 2 ERYTHROMYCIN S <=0.5 TETRACYCLINE S <=4 CLINDAMYCIN S <=0.5 DAPTOMYCIN S <=0.5 S = SENSITIVE I = INTERMEDIATE R = RESISTANT Last 24 Hours Test 04/06/18 07:32 Vancomycin Level Trough 9.0 mcg/ml Assessment and Plan Infected left TKA with methicillin sensitive Staph aureus now status post debridement and poly exchange. Patient has been changed to IV ceftriaxone 2 g daily for expected outpatient therapy. Will likely add rifampin in another day or 2. Would like to see in 2-3 weeks as an outpatient.
[2018-04-06] MEDS: TRAZODONE HCL 100 MG TAB PO SCH (20:39)
[2018-04-06] MEDS: SENNA 8.6 MG TAB PO SCH (21:51)
[2018-04-06 22:59] VITALS: BP 112/71; PULSE 66; TEMP 37; O2SAT 95
[2018-04-06] MEDS: MoRPHine SULFATE 2 MG/ML CARP IV PRN (23:25)
[2018-04-07] VITALS (7 sets, daily range): BP systolic 106–134; BP diastolic 67–82; PULSE 74–93; TEMP 36.6–37.1; O2SAT 93–97
[2018-04-07 07:23] LABS: CREATININE 0.57 mg/dl (0.60-1.20)
[2018-04-07] MEDS: MoRPHine SULFATE 2 MG/ML CARP IV PRN ×2 (07:58→10:19)
[2018-04-07] MEDS: MULTIVITAMIN TAB PO SCH (09:00)
[2018-04-07] MEDS: DOCUSATE SODIUM 100 MG CAP PO SCH ×2 (09:00→20:43)
[2018-04-07] MEDS: ASPIRIN 325 MG ECTAB PO SCH ×2 (09:00→20:43)
--- NOTE | 2018-04-07 09:31 | PROGRESS NOTE ---
DATE: 04/07/2018 CHIEF COMPLAINT: Status post I and D of the left knee, postop day 3. PROGRESS: Unfortunately, she is still having a lot of drainage from her wound. We placed a VAC on it yesterday and she has already gone through 3 canisters. Otherwise, the knee seems to be doing fairly well. She is beginning her IV antibiotics. She will likely get a PICC line placed today. PHYSICAL EXAMINATION: LEFT KNEE: The Prevena VAC dressing is to suction. She is lying with her leg out in full extension. She is neurovascularly intact. There was a little bit of erythema in the area but not bad. LABS: Her cultures have come back positive for staph and seems to be sensitive to everything. IMPRESSION: Status post incision and drainage poly exchange of the left knee with persistent wound drainage. PLAN: Unfortunately, she is still having a lot of drainage from her knee. She is currently n.p.o. and I will go ahead and take her to the OR later today to wash out the knee and just to make sure that everything is completely dry. I think some of the antibiotic beads that were placed in the superficial region may be promoting some of this persistent drainage. She is currently on IV ceftriaxone and will get a PICC line placed today. We will wash out the knee later today and replace the Prevena VAC dressing. She will likely be stable for discharge to home tomorrow.
[2018-04-07] MEDS ORDERED: BACITRACIN 50000 UNIT VIAL ONE (13:31)
[2018-04-07] MEDS ORDERED: FENTANYL CITRATE INJ 50 MCG/1 ML 2 ML VIAL ONE ×3 (13:36→15:25)
[2018-04-07] MEDS ORDERED: MIDAZOLAM HCL 1 MG/ML 2ML VIAL ONE (13:36)
[2018-04-07] MEDS ORDERED: KETOROLAC TROMETHAMINE 30 MG/ML VIAL IV. PRN (15:00)
[2018-04-07] MEDS ORDERED: ONDANSETRON INJ 2 MG/ML 2 ML VIAL IV PRN ×2 (15:00→15:30)
[2018-04-07] MEDS ORDERED: ATROPINE SULFATE 0.1 MG/ML 5ML SYR IV PRN (15:00)
--- NOTE | 2018-04-07 15:07 | [facility] Post Operative Brief Note ---
Immediate Operative Summary Operative Date Apr 07, 2018. Pre-Operative Diagnosis Persistent drainage, Left Knee Post-Operative Diagnosis Persistent drainage, Left Knee Procedure(s) Performed Irrigation and Debridement Left Knee Surgeon Dr. Nette Resendez Psychiatric Rn Surgeon(s) Nette Chisholm PA-C Estimated Blood Loss 5 ml Findings Consistent with Post-Op Diagnosis Specimens no specimen per surgeon Anesthesia Type General
[2018-04-07] MEDS ORDERED: LIDOCAINE 2% 20 MG/ML 5ML SYR ONE (15:12)
[2018-04-07] MEDS ORDERED: ONDANSETRON INJ 2 MG/ML 2 ML VIAL ONE (15:12)
[2018-04-07] MEDS ORDERED: METOCLOPRAMIDE HCL INJ 5 MG/ML 2 ML VIAL ONE (15:12)
[2018-04-07] MEDS ORDERED: PROPOFOL IV EMULSION 10 MG/ML 20 ML VIAL ONE (15:12)
[2018-04-07] MEDS: HYDROmorphone INJ 2 MG/ML SYR/VIAL IV PRN ×5 (15:28→15:48)
[2018-04-07] MEDS ORDERED: OXYCODONE HCL IR 5 MG TAB (IMMEDIATE RELEASE) PO PRN (15:30)
[2018-04-07] MEDS ORDERED: VANCOMYCIN TROUGH ONE (15:30)
[2018-04-07] MEDS ORDERED: MAGNESIUM HYDROXIDE SUSP 30 ML UDC PO PRN (15:30)
[2018-04-07] MEDS ORDERED: BISACODYL 10 MG SUPP PR PRN (15:30)
--- NOTE | 2018-04-07 15:34 | Anesthesiology Progress Note ---
Anesthesia Post Op Note Date & Time Apr 07, 2018 at 15:34 Vital Signs Vital Signs Past 12 Hours Date Time Temp Pulse Resp B/P (MAP) Pulse Ox O2 Delivery O2 Flow Rate FiO2 04/07/18 07:30 Room Air 04/07/18 07:09 36.6 87 17 116/77 (90) 94 Room Air Notes Mental Status: alert / awake / arousable, participated in evaluation Pt Amnestic to Procedure: Yes Nausea / Vomiting: adequately controlled Pain: adequately controlled Airway Patency, RR, SpO2: stable & adequate BP & HR: stable & adequate Hydration State: stable & adequate Anesthetic Complications: no major complications apparent
[2018-04-07] MEDS: KETOROLAC TROMETHAMINE 30 MG/ML VIAL IV. SCH ×2 (15:40→23:48)
[2018-04-07] MEDS: DULOXETINE (CYMBALTA) 30 MG CAP PO SCH (16:43)
[2018-04-07] MEDS: BusPIRone 15 MG TAB PO SCH (16:43)
[2018-04-07] MEDS: CEFTRIAXONE SOD INJ 2,000 MG in DEXTROSE 5% 50ML 50 ML IV SCH (16:50)
[2018-04-07] MEDS: POTASSIUM CHLORIDE INJ 10 MEQ in SODIUM CHLORIDE 0.9% 1000ML 1,000 ML IV SCH (17:40)
--- NOTE | 2018-04-07 18:24 | OPERATIVE REPORT ---
DATE OF OPERATION: 04/07/2018 CHIEF COMPLAINT: Persistent drainage of the left knee. POSTOPERATIVE DIAGNOSIS: Persistent drainage of the left knee. PROCEDURE: Irrigation and debridement of the left knee with wound revision. SURGEON: Dr. Taiwo Resendez. PROFESSOR OF BIOLOGY: Taiwo Chisholm PA-C, whose assistance was necessary for retraction and closure. ANESTHESIA: General. COMPLICATIONS: None. CONDITION: Stable to PACU. INDICATIONS: Lisseth is a 57-year-old female who presented to my office with an infected left knee earlier this week. I took her 3 days ago and did an I and D poly exchange. I placed vancomycin antibiotic beads within the joint as well as on top of the extensor mechanism. Unfortunately, since the procedure, she has continued to drain. I placed a Prevena VAC dressing on the floor, but she went through several canisters. I decided to remove the antibiotic beads which I think were causing irritations and persistent drainage. OPERATION AND FINDINGS: On 04/07/2018, she was taken down from the hospital bed in the preoperative holding and the operative extremity was identified and signed. She was then taken back to the operating room, laid on the table in supine position and put under general anesthesia. The left knee was then prepped and draped in sterile fashion. A timeout was done. The patient's operative extremity was properly identified. The old mani were removed. There was a small area of persistent serous type drainage. The antibiotic beads seemed to be trying to come out through the opening of the wound. The entire wound was opened back up. There were no signs of infection. The extensor mechanism was then irrigated with a pulse lavage and all antibiotic beads were removed. I also decided to remove the antibiotic beads intraarticularly. A portion of the extensor mechanism was opened up and all the beads were removed from the intraarticular portion of the knee. The knee was irrigated with a total of 3 L of normal saline solution with bacitracin. There were no signs of infection throughout this procedure. The extensor mechanism was reapproximated with #1 PDS suture. Skin was then closed with 2-0 Vicryl and a 2-0 nylon suture. A Prevena VAC dressing was placed. The whole surgery was done under tourniquet to ensure that there was no bleeding or further drainage. She was then extubated, transferred back to the hospital bed and taken to postanesthesia care unit in stable condition. She tolerated the procedure well. I attest to the content of the Intraoperative Record and any orders documented therein. Any exception s are noted below.
[2018-04-07] MEDS: SENNA 8.6 MG TAB PO SCH (20:43)
[2018-04-07] MEDS: TRAZODONE HCL 100 MG TAB PO SCH (20:44)
[2018-04-07] MEDS: OXYCODONE HCL IR 5 MG TAB (IMMEDIATE RELEASE) PO PRN (20:49)
[2018-04-07] MEDS ORDERED: ASPIRIN 325 MG ECTAB PO SCH (21:00)
[2018-04-07] MEDS: ACETAMINOPHEN IV 1,000 MG in EMPTY BAG 0 ML IV SCH (21:39)
[2018-04-08] MEDS: POTASSIUM CHLORIDE INJ 10 MEQ in SODIUM CHLORIDE 0.9% 1000ML 1,000 ML IV SCH (02:39)
[2018-04-08 03:03] VITALS: BP 101/63; PULSE 77; TEMP 36.8; O2SAT 95
[2018-04-08] MEDS: OXYCODONE HCL IR 5 MG TAB (IMMEDIATE RELEASE) PO PRN ×2 (03:06→08:47)
[2018-04-08] MEDS: ACETAMINOPHEN IV 1,000 MG in EMPTY BAG 0 ML IV SCH (06:17)
[2018-04-08] MEDS: KETOROLAC TROMETHAMINE 30 MG/ML VIAL IV. SCH (06:17)
--- NOTE | 2018-04-08 07:07 | Discharge Instructions ---
Discharge Instructions Date of Service Apr 08, 2018. Admission Reason for Admission: Infected L Tka Discharge Discharge Diagnosis / Problem: Infected Left Total Knee Discharge Goals Goal(s): Decrease discomfort, Improve function Activity Recommendations Activity Limitations: as noted below . Instructions / Follow-Up Instructions / Follow-Up Activity and Therapy Recommendations: * If you are using [facility] then Physical Therapy will be provided until they feel you are ready to start Outpatient Physical Therapy. If you are not using a Home Health agency then Outpatient Physical Therapy should start about 3-5 days from your day of surgery. Therapy will last about 6-10 weeks * It is important not to put a pillow under your knee when you are relaxing or sleeping. It is just as important to make sure you are getting your knee perfectly straight as it is to regain your knee bend. * You were shown a series of exercises in the hospital. Do these exercises three times each day including the exercises you were shown in physical therapy. * Get up and walk several times each day. For the first four weeks, try not to stand or walk for more than one hour at a time. If you do stand or walk for more than one hour, you will not hurt anything, but your leg will likely swell. * As you feel comfortable, you may change from the walker or crutches to a cane and then to independent walking. Medications: * Narcotic You will likely be sent home from the hospital with a prescription for the narcotic pain medication that worked best throughout your stay. * Aspirin Most patients will be required to take Aspirin 325mg twice a day for 6 weeks after surgery. This is obtained [id number] and a prescription is not necessary. * Other medications may be prescribed for specific circumstances. If you have any questions, please call the office at . * Resume previous home medications unless otherwise instructed TEDs/Elastic Stockings: The white elastic stockings help limit swelling and prevent blood clots from forming in your legs.~ The more you wear them, the more they work. Wear them for six weeks. Dressing Care: You will likely have a purple VAC dressing after surgery. This dressing will keep the incision dry and promote early healing. After about 8 days the batteries will wear out and the VAC will lose suction. Simply remove the dressing at that time and throw everything away, including the small suction machine. Then, you may leave the mani open to air or cover them with a dry dressing so they do not rub on your pants. The mani will be removed at your 2 week follow-up appointment. Showering: You may shower immediately with the purple VAC dressing. Let the shower spray hit your opposite side and slowly pat the plastic dry. Do not soak the dressing. After the dressing is removed you may shower normally with the mani exposed. Let soapy water run over the mani and pat them dry. Things To Watch For: * Drainage from the incision site that occurs more than one week after your surgery. * Increased redness at the incision site. * Fever above 102 degrees Fahrenheit. * Unusual chest pain or shortness of breath. * Call [facility] at with any of the above problems Follow-Up Visit: Follow-up with Dr. Resendez 2-3 weeks after your day of surgery. An appointment was probably scheduled when you signed-up for surgery in the office. If you have any questions call Office Instructions: More detailed instructions as well as Frequently Asked Questions were provided in a folder by our office when you signed-up for surgery. Please review these instructions when you get home. If you have any further questions or concerns, please feel free to call the office at [phone] Activity and Therapy Recommendations: * If you are using [facility] then Physical Therapy will be provided until they feel you are ready to start Outpatient Physical Therapy. If you are not using a Home Health agency then Outpatient Physical Therapy should start about 3-5 days from your day of surgery. Therapy will last about 3-6 weeks * You were shown a series of exercises in the hospital. Do these exercises three times each day including the exercises you were shown in physical therapy. * Get up and walk several times each day.~ For the first four weeks, try not to stand or walk for more than one hour at a time. If you do stand or walk for more than one hour, you will not hurt anything, but your leg will likely swell.~ ~ * As you feel comfortable, you may change from the walker or crutches to a cane and~then to independent walking. Medications: * Narcotic You will likely be sent home from the hospital with a prescription for the narcotic pain medication that worked best throughout your stay. * Aspirin Most patients will be required to take Aspirin 325mg twice a day for 6 weeks after surgery. This is obtained [id number] and a prescription is not necessary. * Other medications may be prescribed for specific circumstances. If you have any questions, please call the office at . * Resume previous home medications unless otherwise instructed TEDs/Elastic Stockings: The white elastic stockings help limit swelling and prevent blood clots from forming in your legs. The more you wear them, the more they work. Wear them for six weeks. Dressing Care: You will likely have a purple VAC dressing after surgery. This dressing will keep the incision dry and promote early healing. After about 8 days the batteries will wear out and the VAC will lose suction. Simply remove the dressing at that time and throw everything away, including the small suction machine. Then, you may leave the mani open to air or cover them with a dry dressing so they do not rub on your pants. The mani will be removed at your 2 week follow-up appointment. Showering: You may shower immediately with the purple VAC dressing. Let the shower spray hit your opposite side and slowly pat the plastic dry. Do not soak the dressing. After the dressing is removed you may shower normally with the mani exposed. Let soapy water run over the mani and pat them dry. Things To Watch For: * Drainage from the incision site that occurs more than one week after your surgery. * Increased redness at the incision site. * Fever above 102 degrees Fahrenheit. * Unusual chest pain or shortness of breath. * Call [facility] at with any of the above problems Follow-Up Visit: Follow-up with Dr. Resendez 2-3 weeks after your day of surgery. An appointment was probably scheduled when you signed-up for surgery in the office. If you have any questions call Office Instructions: More detailed instructions as well as Frequently Asked Questions were provided in a folder by our office when you signed-up for surgery. Please review these instructions when you get home. If you have any further questions or concerns, please feel free to call the office at [phone] Current Hospital Diet Patient's current hospital diet: Regular Diet Discharge Diet Recommended Diet: Regular Diet Procedures Procedures Performed: Irrigation and Debridement Left Knee Pending Studies Studies pending at discharge: no Medical Emergencies . Who to Call and When: Medical Emergencies: If at any time you feel your situation is an emergency, please call 911 immediately. . Non-Emergent Contact Non-Emergency issues call your: Surgeon Call Non-Emergent contact if: wound has increased drainage, wound has increased redness . "Provider Documentation" section prepared by Taiwo Resendez. .
[2018-04-08 07:17] LABS: CREATININE 0.59 mg/dl (0.60-1.20)
[2018-04-08 08:02] VITALS: BP 99/65; PULSE 68; TEMP 36.7; O2SAT 96
--- NOTE | 2018-04-08 08:16 | PROGRESS NOTE ---
DATE: 04/08/2018 CHIEF COMPLAINT: Status post I and D of the left knee postop day #4 with wound revision postop day #1. PROGRESS: Lisseth was seen and examined at bedside today. Overall, she is doing much better. She says it is the best her knee has felt in a long time. She is not putting out any more drainage. She has been up and ambulating to the bathroom, has no complaints. PHYSICAL EXAMINATION: LEFT KNEE: The leg is out in full extension. The Prevena VAC dressing is to suction, but there has been no drainage to this point. She has active dorsiflexion and plantarflexion of her left ankle. Sensation is intact. IMPRESSION: 1. Status post I and D of the left knee, postop day #4. 2. Status post wound revision, postop day #1. PLAN: She seems to be doing much better since the wound revision. She is not putting out any more drainage. I think the antibiotic beads were the issue, which were causing the persistent drainage. Those have been removed. She is currently on IV ceftriaxone per infectious disease recommendation. She will get her PICC line placed this morning. I will discharge her to home later this morning with the IV ceftriaxone. She will continue Percocet for pain. She has a script at home already and she is going to continue aspirin 325 twice a day for DVT prophylaxis. I will see her in the office in 2 weeks.
[2018-04-08] MEDS: DOCUSATE SODIUM 100 MG CAP PO SCH (08:44)
[2018-04-08] MEDS: MULTIVITAMIN TAB PO SCH (08:44)
[2018-04-08] MEDS: ASPIRIN 325 MG ECTAB PO SCH (08:44)
--- NOTE | 2018-04-08 09:19 | DISCHARGE SUMMARY ---
DISCHARGE DIAGNOSIS: Infected left total knee. PROCEDURES: 1. I and D with poly exchange of the left knee on 04/04/2018. 2. Revision wound on 04/07/2018. DISCHARGE INSTRUCTIONS: 1. Ceftriaxone 2 grams IV every 24 hours x6 weeks. 2. Follow up with infectious disease in 2 weeks. 3. Follow up with Dr. Resendez in 2 weeks. 4. Prevena VAC dressing for 8 days. 5. Weightbear as tolerated. 6. Percocet 5/325 as needed for pain. 7. Aspirin 325 mg twice a day. 8. Albuterol inhaler as needed. 9. BuSpar 10 mg daily. 10. Cymbalta 90 mg daily. 11. Trazodone 100 mg at night. HOSPITAL COURSE: Lisseth is a 57-year-old female who underwent a left total knee arthroplasty 3 weeks ago. Two weeks after the procedure, the mani were removed. The wound looked okay. There was a hematoma beneath the skin. About 5 days after that, she came back to my office with some drainage. An aspiration was done in the office of the superficial hematoma and there was some purulent discharge. I felt that the area was infected and she went directly from my office to the hospital. I took her then for an urgent I and D of the knee on 04/04/2018. During the superficial irrigation and removal of the wound, there was communication through the extensor mechanism to the prosthesis. Although the prosthesis did not appear to be infected, I did open up the quad tendon and do a full poly exchange and full washout of the knee. I placed antibiotic beads within the knee joint as well as on top of the extensor mechanism. Postoperatively, she was started on vancomycin. Infectious disease was consulted. Unfortunately, she had a lot of persistent drainage from her knee incision. She went through several gauze dressing throughout the first night. She was followed by infectious disease and the cultures grew out a methicillin-sensitive Staph, a very low virulent organism. She was still having a lot of drainage. A Prevena VAC dressing was then placed at bedside. She went to 3 canisters overnight the first night. At this point, I decided to take her back for a wound revision. I thought that the antibiotic beads were causing irritation and possible persistent seromas of her knee. On 04/07/2018, she was taken back to the operating room and underwent a repeat I and D of the knee. This procedure was done more simply to remove those antibiotic beads and to wash it out. There were no signs of infection during this procedure. The wound was then closed with sutures and the Prevena VAC dressing was once again applied. The following day, she was doing much better. She was having no drainage from the knee. She said that this is the best her knee felt since she has been in the hospital. She had a PICC line then placed and she was subsequently discharged to home with IV ceftriaxone and the above instructions. DIAMOND
[2018-04-08] MEDS: DULOXETINE (CYMBALTA) 30 MG CAP PO SCH (09:26)
[2018-04-08] MEDS: BusPIRone 15 MG TAB PO SCH (09:26)
[2018-04-08] MEDS ORDERED: NURSING VERBAL MED ORDER ONE (09:45)
[2018-04-08] MEDS: CEFTRIAXONE SOD INJ 2,000 MG in DEXTROSE 5% 50ML 50 ML IV SCH (10:05)
[2018-04-08 10:59] VITALS: BP 99/65; PULSE 68; TEMP 36.7; O2SAT 96
== END 2018-04-08 12:15 | disposition home health service (06) | DRG 468 ==
LOC: C.MSN 15:43
PROVIDERS: ADMIT Orthopaedic Surgery; ATTEND Orthopaedic Surgery
PROC: 0SPV0JZ Removal of Synthetic Substitute from Right Knee Joint, Tibial Surface, Open Approach (ICD-10-PCS; principal; 2018-04-04 10:15)
PROC: 0SRV0JA Replacement of Right Knee Joint, Tibial Surface with Synthetic Substitute, Uncemented, Open Approach (ICD-10-PCS; principal; 2018-04-04 10:15)
PROC: 3E01329 Introduction of Other Anti-infective into Subcutaneous Tissue, Percutaneous Approach (ICD-10-PCS; principal; 2018-04-04 10:15)
PROC: 0Y9G0ZZ Drainage of Left Knee Region, Open Approach (ICD-10-PCS; 2018-04-07)
PROC: 02HV33Z Insertion of Infusion Device into Superior Vena Cava, Percutaneous Approach (ICD-10-PCS; 2018-04-08)
DX: T84.54XA Infection and inflammatory reaction due to internal left knee prosthesis, initial encounter (principal); B95.61 Methicillin susceptible Staphylococcus aureus infection as the cause of diseases classified elsewhere; F32.9 Major depressive disorder, single episode, unspecified; Z79.82 Long term (current) use of aspirin; Z79.899 Other long term (current) drug therapy; Z96.652 Presence of left artificial knee joint; Z88.5 Allergy status to narcotic agent; Y83.1 Surgical operation with implant of artificial internal device as the cause of abnormal reaction of the patient, or of later complication, without mention of misadventure at the time of the procedure; Y79.2 Prosthetic and other implants, materials and accessory orthopedic devices associated with adverse incidents